=== PATIENT | male | born 1995 | race Caucasian/White ===

== ENCOUNTER → 2019-03-19 | Outpatient (CLI) | payer OTHER ==
--- NOTE | 2019-03-19 15:09 | REP ---
REASON: Back pain. Vertebral body height and alignment is within normal limits. The disc spaces are symmetric throughout. There is no spondylolysis or spondylolisthesis. The pedicles are intact bilaterally. IMPRESSION: Findings are within normal limits. Electronically Signed by Anjel Monets DO 03/19/2019 04:57 P
== END ==
LOC: M LRY 13:04
PROVIDERS: ATTEND Physician Assistant
DX: S39.92XA Unspecified injury of lower back, initial encounter (principal); X58.XXXA Exposure to other specified factors, initial encounter